=== PATIENT | female | born 1965 | race Two or more races ===

== ENCOUNTER 2020-09-25 03:03 | Emergency (ER) | payer MEDICAID ==
[~2020-09-25] VITALS: Ht 172.7 cm; Wt 81.8 kg
[2020-09-25] MEDS ORDERED: LIDOCAINE 1% 10 ML VIAL ID ONE (03:45)
[2020-09-25] MEDS ORDERED: BACITRACIN 0.9 GM PACKET OINTMENT TP ONE (05:15)
[2020-09-25 05:30] VITALS: BP 136/89
[2020-09-25] MEDS ORDERED: PERTUSS(ACELL),DIPH,TET VAC/PF 0.5 ML SYRINGE IM ONE (05:30)
== END 2020-09-25 06:51 | disposition home or self-care (01) ==
LOC: EMS 03:04
DX: S62.621A Displaced fracture of middle phalanx of left index finger, initial encounter for closed fracture (principal); S61.213A Laceration without foreign body of left middle finger without damage to nail, initial encounter; W25.XXXA Contact with sharp glass, initial encounter; Y93.89 Activity, other specified; Y92.89 Other specified places as the place of occurrence of the external cause; Y99.8 Other external cause status
CPT/HCPCS: 12042; 29130; 73140; 90471; 90715; 99284; J3490